=== PATIENT | female | born 1955 | race Caucasian/White ===

== ENCOUNTER 2018-04-19 12:54 | Emergency (ER) | payer MEDICARE, MEDICAID ==
[~2018-04-19] VITALS: Ht 160 cm; Wt 71.0 kg
[2018-04-19 13:19] VITALS: BP 118/61
[2018-04-19] MEDS ORDERED: AMOX-422 PO (14:48)
== END 2018-04-19 15:22 | disposition home or self-care (01) ==
LOC: ER 12:55
DX: K12.2 Cellulitis and abscess of mouth (principal); Z98.890 Other specified postprocedural states
CPT/HCPCS: 99283

== ENCOUNTER 2024-11-28 10:50 | Emergency (ER) | payer MEDICARE, OTHER ==
[~2024-11-28] VITALS: Ht 160 cm; Wt 63.7 kg
--- NOTE | 2024-11-28 11:05 | Physician Documentation ---
History of Present Illness ~ Chief Complaint: Sore Throat Stated Complaint: SORE THROAT/HEADACHE Time Seen by MD: 11:02 HPI This is a 69-year-old female who presents to the emergency department with two days of symptoms that include headache, nausea, cough with phlegm, and overall feeling unwell. She reports that she works at [employer] and was exposed to an ill coworkers several days ago with similar symptoms. She denies chronic medical problems, and reports that she does not take any medications. And she took an ibuprofen this morning prior to presentation to the ER. Rates headache 12/12. Medication Reconciliation Allergies: Coded Allergies: codeine (Unverified Allergy, Unknown, 11/28/24) Scheduled PRN ONDANSETRON ODT 4mg tablet (Ondansetron Odt), 1 TAB PO Q6H PRN PRN for nausea/vomiting Past Medical History Past Medical History: No Pertinent History Past Surgical History: Alcohol Use: None Review of Systems ROS As stated above in the HPI, otherwise all systems are reviewed and negative. Physical Exam Vital Signs: Temperature: 97.2, Source: Temporal, Heart Rate: 79, Respiratory Rate: 16, BP: 124/56, Pulse Oximetry: 97, Weight: 63.700 Oxygen Flow Rate: 0 Physical Exam General: Alert, no apparent distress. HEENT: PERRL, EOMI, no injection, moist mucous membranes. Clear canals/normal TMs. Mild posterior pharyngeal erythema without enlarged or exudative tonsils. Neck: Full range of motion. Respiratory: Lungs clear, no respiratory distress. Chest: No accessory muscle use. Cardiovascular: Regular rate and rhythm, no murmurs. Gastrointestinal: Soft, nontender, nondistended. Bowels sounds present. Extremities: Normal range of motion, no deformity. Neurologic: Oriented x4. Psychiatric: Normal mood and affect. Skin: Normal color, warm and dry. No edema, no ecchymosis. Progress Results/Orders Results/Orders Orders - VIRGEN CARO NP Strep A Rapid (11/28/24 12:10) Completed Orders - VIRGEN CARO NP Diphenhydramine Capsule (Benadryl Capsul (11/28/24 11:10) Prochlorperazine Inj (Compazine Inj) (11/28/24 11:10) Ondansetron Disint. Tablet (Zofran Odt T (11/28/24 11:10) Vital Signs 11/28/24 10:52 Temp 97.2 Pulse 79 Resp 16 B/P (MAP) 124/56 Pulse Ox 97 O2 Flow Rate 0 Laboratory Tests Test 11/28/24 11:11 SARS-CoV-2 Antigen (Rapid) Negative Medical Decision Making Additional Comment Well-appearing 69-year-old female who was offered medication for nausea and headache, but declined. Ultimately, she was requesting a work note. This was provided. She was negative for COVID, she will be called if her strep is positive. Departure Time of Disposition: 12:16 Disposition: 01 HOME / SELF CARE / HOMELESS Impression: Primary Impression: Viral syndrome Condition: Stable Discharge Instructions: Sore Throat, Viral Illness, Adult Additional Instructions: Negative Covid-19 testing. Remain off work for the next couple days. Hydrate, rest. Use acetaminophen or Ibuprofen for pain per labeled instructions. use the prescribed ondansetron if needed for nausea. Return if worse. Referrals: NO PRIMARY CARE PROVIDER (PCP) Prescriptions ONDANSETRON ODT 4mg tablet (ONDANSETRON ODT) 4 Mg Tab.rapdis 1 TAB PO Q6H PRN PRN for nausea/vomiting for 4 Days, #16 TAB 0 Refills Prov: VIRGEN CARO NP 11/28/24 Education Educated: Patient Educated regarding: diagnosis, treatment, prognosis, need for follow up Signature Scribe Signature: x Attestation: The note accurately reflects work and decisions made by me.Virgen Mancini NP 11/28/24 11:12 VIRGEN CARO NP Nov 28, 2024 11:05
[2024-11-28] MEDS: ondansetron 4mg rapidly disintigrating tab PO ONE (11:25)
[2024-11-28] MEDS ORDERED: ONDA-243 PO (12:18)
[2024-11-28 12:24] VITALS: BP 122/65; PULSE 68; RESP 16; TEMP 97.9; O2SAT 98
[2024-11-28 12:26] LABS: STREP A SCREEN NEGATIVE (Neg)
== END 2024-11-28 12:20 | disposition home or self-care (01) ==
LOC: ER 10:51
DX: B34.9 Viral infection, unspecified (principal); Z88.5 Allergy status to narcotic agent; Z20.822 Contact with and (suspected) exposure to COVID-19
CPT/HCPCS: 36415; 87081; 87811; 87880; 99283